=== PATIENT | female | born 1960 | race Caucasian/White ===

== ENCOUNTER 2020-10-15 18:33 | Emergency (ER) | payer BC ==
[2020-10-15 18:45] VITALS: BP 122/60; PULSE 83; TEMP 99.1; BMI 23.0
== END 2020-10-15 22:29 | disposition home or self-care (01) ==
LOC: JER 18:33
DX: R06.02 Shortness of breath (principal); U07.1 COVID-19
CPT/HCPCS: 71046-TC-FY; 71250-TC; 99284-25